=== PATIENT | male | born 1945 | race Caucasian/White ===

== ENCOUNTER 2021-02-01 11:39 | Outpatient (CLI) | payer MEDICARE, BC ==
[2021-02-01 13:05] LABS: #Eosinphils 0.1 10x3/uL (0.0-0.5); #Monocytes 0.5 10x3/uL (0.0-1.1); #Neutrophils 3.9 10x3/uL (1.5-8.4); %Basophils 0.3 % (0.0-2.0); %Eosinophils 1.5 % (0.0-6.0); %Lymphocytes 30.9 % (18.0-47.0); %Monocytes 7.8 % (0.0-10.0); %Neutrophils 59.2 % (40.0-75.0); Mean Corpuscular HGB CONC 33.7 g/dL (32.0-36.0); Mean Corpuscular Hemoglobin 33.5 pg (27.0-33.0); Mean Corpuscular Volume 99.5 fl (81.2-95.1); Mean Platelet Volume 10.9 fl (7.4-10.4); Platelet Count 117 10x3/uL (150-450); RBC Distribution Width 11.2 % (11.5-14.5); Red Blood Cell (RBC) Count 4.18 10x6/uL (4.32-5.72); White Blood Cell (WBC) Count 6.7 10x3/uL (3.5-10.5)
[2021-02-01 13:23] LABS: ALT (SGPT) 26 U/L (8-55); AST (SGOT) 22 U/L (5-34); Albumin 4.3 g/dL (3.4-4.8); Alkaline Phosphatase 57 U/L (40-110); Anion Gap 14 mmol/L (10-20); BUN (Urea Nitrogen) 13 mg/dL (8.4-25.7); Bilirubin, Total 0.6 mg/dL (0.2-1.2); Calc. Creatinine Clearance 0 mL/min (70-130); Calcium 9.1 mg/dL (7.8-10.44); Carbon Dioxide 25 mmol/L (23-31); Chloride 106 mmol/L (98-107); Globulin 2.5 g/dL (2.4-3.5); Glucose 93 mg/dL (83-110); Potassium 4.3 mmol/L (3.5-5.1); Protein, Total 6.8 g/dL (5.8-8.1); Sodium 141 mmol/L (136-145)
[2021-02-01 14:07] LABS: Platelet Morphology Comment Appears Decreased; RBC Morphology Normal
[2021-02-01 20:44] LABS: SARS-CoV-2 PCR by NAA Not Detected (NotDetected)
== END 2021-02-01 11:40 | disposition home or self-care (01) ==
LOC: LABBT 11:39
PROVIDERS: ATTEND Surgery
DX: Z01.818 Encounter for other preprocedural examination (principal); K40.90 Unilateral inguinal hernia, without obstruction or gangrene, not specified as recurrent; Z20.822 Contact with and (suspected) exposure to COVID-19
CPT/HCPCS: 80053; 85025; 93005; U0003; U0005; 87635; 93010

== ENCOUNTER 2021-02-06 06:24 | Day surgery (SDC) | payer MEDICARE, BC ==
[2021-02-05 10:05] VITALS: BMI 24.4
[2021-02-06] MEDS ORDERED: Lidocaine 1% w/Epinephrine 1:100K 20 ML VIAL ONE (06:49)
[2021-02-06] MEDS ORDERED: Bupivacaine 0.25% HCL 30 ML VIAL ONE (06:49)
[2021-02-06] MEDS ORDERED: Fentanyl 100 MCG/2 ML VIAL ONE ×2 (07:10→09:47)
[2021-02-06] MEDS ORDERED: Famotidine/PF 20 mg/2ml Vial ONE (07:35)
[2021-02-06] MEDS ORDERED: Glycopyrrolate 0.2 MG/ML 5 ML SYRINGE ONE (07:48)
[2021-02-06] MEDS ORDERED: PROPOFOL 200 MG/20 ML VIAL ONE (07:48)
[2021-02-06] MEDS ORDERED: Ondansetron PF 4 MG/2 ML Vial ONE (07:48)
[2021-02-06] MEDS ORDERED: Lidocaine 1% PF 5 ML VIAL ONE (07:48)
[2021-02-06] MEDS ORDERED: Dexamethasone 20 MG/5 ML VIAL ONE (07:48)
[2021-02-06] MEDS ORDERED: Rocuronium Bromide 10 MG/ML (10ML VIAL) ONE (07:48)
[2021-02-06] MEDS ORDERED: Ketorolac Tromethamine 30 MG/ML VIAL ONE (07:48)
[2021-02-06] MEDS ORDERED: hydrALAZINE 20 MG/ML VIAL ONE (08:30)
[2021-02-06] MEDS ORDERED: HYDROcodone/Acetaminophen 5/325 mg Tablet ONE (10:37)
[2021-02-06] MEDS ORDERED: Ondansetron ODT 4 MG TAB ONE (13:08)
== END 2021-02-06 13:18 | disposition home or self-care (01) ==
LOC: SDC 06:24
PROVIDERS: ATTEND Surgery
PROC: 0YUA4JZ Supplement Bilateral Inguinal Region with Synthetic Substitute, Percutaneous Endoscopic Approach (ICD-10-PCS; principal; 2021-02-06)
DX: K40.20 Bilateral inguinal hernia, without obstruction or gangrene, not specified as recurrent (principal); E78.00 Pure hypercholesterolemia, unspecified; G47.33 Obstructive sleep apnea (adult) (pediatric); M19.90 Unspecified osteoarthritis, unspecified site; Z79.899 Other long term (current) drug therapy
CPT/HCPCS: C1781; J0360; J0690; J1100; J1885; J2405; J2704; J3010; Q0162; S0020; S0028

== ENCOUNTER 2021-08-08 08:06 | Emergency (ER) | payer MEDICARE, BC ==
[2021-08-08] MEDS ORDERED: Ketorolac Tromethamine 30 MG/ML VIAL ONE (09:47)
== END 2021-08-08 10:22 | disposition home or self-care (01) ==
LOC: ERS 08:06
DX: S22.41XA Multiple fractures of ribs, right side, initial encounter for closed fracture (principal); N28.1 Cyst of kidney, acquired; W01.198A Fall on same level from slipping, tripping and stumbling with subsequent striking against other object, initial encounter
CPT/HCPCS: 71260; 74177; 96374; J1885

== ENCOUNTER 2021-08-30 11:50 | Outpatient (CLI) | payer MEDICARE, BC ==
[2021-08-30 13:00] LABS: #Eosinphils 0.4 10x3/uL (0.0-0.5); #Monocytes 0.5 10x3/uL (0.0-1.1); #Neutrophils 3.8 10x3/uL (1.5-8.4); %Basophils 0.4 % (0.0-2.0); %Eosinophils 6.5 % (0.0-6.0); %Lymphocytes 29.3 % (18.0-47.0); %Monocytes 7.2 % (0.0-10.0); %Neutrophils 56.3 % (40.0-75.0); Hemoglobin 13.4 g/dL (13.5-17.5); Mean Corpuscular HGB CONC 34.4 g/dL (32.0-36.0); Mean Corpuscular Hemoglobin 33.8 pg (27.0-33.0); Platelet Count 127 10x3/uL (150-450); RBC Distribution Width 11.5 % (11.5-14.5); Red Blood Cell (RBC) Count 3.97 10x6/uL (4.32-5.72); White Blood Cell (WBC) Count 6.8 10x3/uL (3.5-10.5)
[2021-08-30 13:32] LABS: ALT (SGPT) 22 U/L (8-55); AST (SGOT) 23 U/L (5-34); Albumin 4.5 g/dL (3.4-4.8); Alkaline Phosphatase 61 U/L (40-110); Anion Gap 12 mmol/L (10-20); BUN (Urea Nitrogen) 14 mg/dL (8.4-25.7); Bilirubin, Total 0.9 mg/dL (0.2-1.2); Calc. Creatinine Clearance 0 mL/min (70-130); Calcium 9.2 mg/dL (7.8-10.44); Carbon Dioxide 29 mmol/L (23-31); Chloride 105 mmol/L (98-107); Globulin 2.6 g/dL (2.4-3.5); Glucose 85 mg/dL (83-110); Potassium 4.2 mmol/L (3.5-5.1); Protein, Total 7.1 g/dL (5.8-8.1); Sodium 142 mmol/L (136-145)
[2021-08-31 15:29] LABS: SARS-CoV-2 PCR by NAA Not Detected (NotDetected)
== END 2021-08-30 11:51 | disposition home or self-care (01) ==
LOC: LABBT 11:50
PROVIDERS: ATTEND Surgery
DX: Z01.818 Encounter for other preprocedural examination (principal); K43.9 Ventral hernia without obstruction or gangrene; Z20.822 Contact with and (suspected) exposure to COVID-19
CPT/HCPCS: 80053; 85025; 93005; U0003; U0005; 93010

== ENCOUNTER 2021-09-04 07:14 | Day surgery (SDC) | payer MEDICARE, BC ==
[2021-09-02 12:41] VITALS: BMI 24.4
[2021-09-04] MEDS ORDERED: Bupivacaine 0.25% 10 ML VIAL ONE (07:54)
[2021-09-04] MEDS ORDERED: ceFAZolin 2 GM/DEX 5% 100 ML BAG ONE (08:19)
[2021-09-04] MEDS ORDERED: Fentanyl 100 MCG/2 ML VIAL ONE ×3 (08:25→10:10)
[2021-09-04] MEDS ORDERED: Glycopyrrolate 0.2 MG/ML 5 ML SYRINGE ONE (08:43)
[2021-09-04] MEDS ORDERED: Rocuronium Bromide 10 MG/ML (10ML VIAL) ONE (08:43)
[2021-09-04] MEDS ORDERED: Lidocaine 1% PF 5 ML VIAL ONE (08:43)
[2021-09-04] MEDS ORDERED: Dexamethasone 20 MG/5 ML VIAL ONE (08:43)
[2021-09-04] MEDS ORDERED: Ondansetron PF 4 MG/2 ML Vial ONE (08:43)
[2021-09-04] MEDS ORDERED: PROPOFOL 200 MG/20 ML VIAL ONE (08:43)
[2021-09-04] MEDS ORDERED: HYDROcodone/Acetaminophen 5/325 mg Tablet ONE ×2 (11:13→15:05)
[2021-09-04] MEDS ORDERED: Ketorolac Tromethamine 30 MG/ML VIAL ONE (14:33)
== END 2021-09-04 16:20 | disposition home or self-care (01) ==
LOC: SDC 07:14
PROVIDERS: ATTEND Surgery
PROC: 0WUF0JZ Supplement Abdominal Wall with Synthetic Substitute, Open Approach (ICD-10-PCS; principal; 2021-09-04)
DX: K43.2 Incisional hernia without obstruction or gangrene (principal); N40.0 Benign prostatic hyperplasia without lower urinary tract symptoms; E78.00 Pure hypercholesterolemia, unspecified; Z90.49 Acquired absence of other specified parts of digestive tract; Z98.890 Other specified postprocedural states; Z96.698 Presence of other orthopedic joint implants; Z79.899 Other long term (current) drug therapy
CPT/HCPCS: C1781; J1885; J3010; S0020

== ENCOUNTER 2021-12-31 10:14 | Outpatient (CLI) | payer MEDICARE, BC ==
[2022-01-01 00:46] LABS: SARS-CoV-2 PCR by NAA Not Detected (NotDetected)
== END 2021-12-31 10:15 | disposition home or self-care (01) ==
LOC: LABBT 10:14
PROVIDERS: ATTEND Otolaryngology
DX: Z20.822 Contact with and (suspected) exposure to COVID-19 (principal)
CPT/HCPCS: U0003; U0005

== ENCOUNTER 2022-01-03 10:00 | Outpatient (CLI) | payer MEDICARE, BC | END 2022-01-03 10:01 | disposition home or self-care (01) | LOC: RAD 10:00 | PROVIDERS: ATTEND Otolaryngology | DX: K21.9 Gastro-esophageal reflux disease without esophagitis (principal); R49.0 Dysphonia; K44.9 Diaphragmatic hernia without obstruction or gangrene; K22.2 Esophageal obstruction | CPT/HCPCS: 74220 ==

== ENCOUNTER 2022-10-14 12:42 | Outpatient (CLI) | payer MEDICARE, BC ==
[2022-10-14] MEDS ORDERED: Magnevist 469MG/ML 20 ML VIAL ONE (13:26)
== END 2022-10-14 12:43 | disposition home or self-care (01) ==
LOC: TBSIIMAG 12:42
PROVIDERS: ATTEND Urology
DX: R97.20 Elevated prostate specific antigen [PSA] (principal)
CPT/HCPCS: 72197; A9579